=== PATIENT | female | born 1975 | race Caucasian/White ===

== ENCOUNTER 2018-09-03 16:37 | Emergency (ER) | payer BC ==
[2018-09-03] MEDS: IBUPROFEN 600 MG TAB PO (18:36)
[2018-09-03] MEDS: LIDOCAINE 1% (MDV) 20 ML INJ SC (19:16)
== END 2018-09-03 19:58 | disposition home or self-care (01) ==
LOC: FTE 16:37
DX: L02.413 Cutaneous abscess of right upper limb (principal)
CPT/HCPCS: 10060; 81025; 99283-25